=== PATIENT | male | born 1980 | race Caucasian/White ===

== ENCOUNTER 2020-06-21 11:29 | Emergency (ER) | payer OTHER, SELFPAY ==
[~2020-06-21] VITALS: Ht 170.2 cm; Wt 86.2 kg
[2020-06-21 11:44] VITALS: BP 121/88
[2020-06-21] MEDS ORDERED: diazePAM 5 MG TAB PO ONE (12:00)
[2020-06-21] MEDS ORDERED: KETOROLAC 30 MG/ML VIAL IM ONE (12:00)
[2020-06-21] MEDS ORDERED: DIAZ5TAB7 PO (12:43)
[2020-06-21 13:00] VITALS: BP 118/81
== END 2020-06-21 13:00 | disposition home or self-care (01) ==
LOC: MED 11:29
DX: M54.41 Lumbago with sciatica, right side (principal); G89.29 Other chronic pain; Z79.899 Other long term (current) drug therapy
CPT/HCPCS: 96372; 99283; J1885